=== PATIENT | male | born 1940 | race Caucasian/White ===

== ENCOUNTER → 2016-09-20 | Outpatient (CLI) | payer MEDICARE, BC ==
[2016-09-20 10:10] LABS: ALT 17 U/L (21-72); AST 18 U/L (17-59); Alkaline Phosphatase 79 U/L (38-126); Anion Gap 8 mmol/L; Blood Urea Nitrogen 7 mg/dL (9-20); Calcium 8.7 mg/dL (8.4-10.2); Carbon Dioxide 37 mmol/L (22-30); Chloride 93 mmol/L (98-107); Glucose 99 mg/dL (74-99); Non-African American GFR(MDRD) >60 (>60 ml/min/1.73 sqM); Potassium 3.6 mmol/L (3.5-5.1); Sodium 138 mmol/L (137-145); Total Bilirubin 0.5 mg/dL (0.2-1.3); Total Protein 5.9 g/dL (6.3-8.2)
[2016-09-20 10:24] LABS: Basophils % (A) 0 %; CH 31.3; CHCM 32.7; Eosinophils % (A) 0 %; HCT 31.3 % (39.0-53.0); HDW 2.45; HGB 10.2 gm/dL (13.0-17.5); Luc % (Auto) 1; Lymphocytes # (A) 0.5 k/uL (1.0-4.8); Lymphocytes % (A) 5 %; MCH 31.4 pg (25.0-35.0); MCHC 32.6 g/dL (31.0-37.0); MCV 96.2 fL (80.0-100.0); Mean Platelet Volume 6.3; Monocytes # (A) 0.5 k/uL (0-1.0); Monocytes % (A) 4 %; Neutrophils # (A) 9.8 k/uL (1.3-7.7); Neutrophils % (A) 90 %; RBC 3.25 m/uL (4.30-5.90); RDW 12.9 % (11.5-15.5); WBC (Perox) 11.44
--- NOTE | 2016-09-21 11:14 | PE ---
EXAMINATION TYPE: PET CT fusion skull to thigh DATE OF EXAM: 09/20/2016 1:05 PM COMPARISON: CT chest 06/29/2015 [facility], prior PET/CT 05/10/2016 HISTORY: Lung cancer TECHNIQUE: Following the intravenous administration of 13.80 mCi of F-18 FDG, whole body images are performed from the skull base to the midthigh. Images are reviewed on the computer in the coronal, a xial, and sagittal planes. Reconstructed rotating images are created on independent workstation and reviewed on the computer. A localization and attenuation correction CT is performed in conjunction with the PET scan. DLP: 193.77 mGycm SCAN: Subsequent Scan Blood glucose: 87 mg/dL Average Mediastinum SUV: 1.2 Average Liver SUV: 1.5 FINDINGS: NECK: No abnormal uptake THORAX: There is marked uptake within the thickening of the medial superior mediastinum, left lung an d upper thoracic vertebral body compatible with neoplasm. There is abnormal uptake within the posteri or mediastinum. This has an SUV value of 9 compatible with neoplasm. ABDOMEN AND PELVIS: No abnormal uptake OSSEOUS STRUCTURES: There is abnormal uptake within the upper thoracic vertebral level, likely T4 lev el. LOCALIZATION CT: Small bilateral pleural effusions are present. Lung mass appears to extend through t he aortopulmonic window surrounding the proximal thoracic esophagus into the T4 vertebral level and a djacent to the medial left apex and posterior left lung COMPARISON: PET/CT 05/10/2016 uptake within the mediastinum appears similar distribution but somewhat more extensive. Involvement of the vertebral body SUV value has increased over the interval. May be m ore extensive. Pleural effusions are increasing from the comparison PET/CT. IMPRESSION: 1. Increasing SUV value within the superior mediastinal, left apical, and thoracic vertebral lung mas s. Findings appear increased and worsening from comparison PET/CT. 2. Increasing pleural effusions.
== END | disposition home or self-care (01) ==
LOC: RADPETMAIN 09:23
PROVIDERS: ATTEND Internal Medicine Hematology & Oncology
DX: C34.12 Malignant neoplasm of upper lobe, left bronchus or lung (principal); J90 Pleural effusion, not elsewhere classified
CPT/HCPCS: 80053; 85025; 78815; A9552